=== PATIENT | female | born 1985 | race African-American/Black ===

== ENCOUNTER 2018-11-03 17:19 | Observation (INO) ==
[2018-11-03] MEDS ORDERED: ONDANSETRON 4 MG/2 ML VIAL IV PRN (23:03)
[2018-11-03] MEDS ORDERED: MORPHINE 4 MG/1 ML VIAL IV PRN (23:03)
[2018-11-03] MEDS ORDERED: ACETAMINOPHEN 325 MG TABLET PO PRN (23:03)
[2018-11-03] MEDS ORDERED: KETOROLAC 30 MG/1 ML VIAL IV STA (23:20)
[2018-11-03] MEDS ORDERED: LORazepam 2 MG/1 ML VIAL IV STA (23:20)
[2018-11-03] MEDS ORDERED: LORazepam 2 MG/1 ML VIAL ONE (23:21)
[2018-11-03] MEDS ORDERED: KETOROLAC 30 MG/1 ML VIAL ONE (23:21)
[2018-11-03] MEDS ORDERED: DEXTROSE 5% LACTATED RINGERS 1,000 ML IV SCH (23:30)
[2018-11-04] MEDS ORDERED: LACTATED RINGERS 1,000 ML IV SCH ×2 (07:30→09:30)
[2018-11-04] MEDS ORDERED: ceFAZolin 1,000 MG VIAL ONE (08:40)
[2018-11-04] MEDS ORDERED: PANTOPRAZOLE 40 MG VIAL IV SCH (09:00)
[2018-11-04] MEDS ORDERED: ONDANSETRON 4 MG/2 ML VIAL IV PRN ×2 (09:19→09:37)
[2018-11-04] MEDS ORDERED: MEPERIDINE 25 MG/1 ML VIAL IM PRN (09:19)
[2018-11-04] MEDS ORDERED: PROPOFOL 200 MG/20 ML VIAL IV ONE (09:24)
[2018-11-04] MEDS ORDERED: fentaNYL 100 MCG/2 ML VIAL ONE ×2 (09:24→09:30)
[2018-11-04] MEDS ORDERED: SEVOFLURANE 1 UNIT/15 MINUTE INH ONE (09:24)
[2018-11-04] MEDS ORDERED: DEXAMETHASONE 10 MG/1 ML VIAL ONE (09:25)
[2018-11-04] MEDS ORDERED: ONDANSETRON 4 MG/2 ML VIAL ONE (09:25)
[2018-11-04] MEDS ORDERED: METOPROLOL TARTRATE 5 MG/5 ML VIAL IV ONE (09:25)
[2018-11-04] MEDS ORDERED: LACTATED RINGERS 1,000 ML IV ONE (09:25)
[2018-11-04] MEDS ORDERED: ROCURONIUM 100 MG/10 ML VIAL IV ONE (09:25)
[2018-11-04] MEDS ORDERED: NEOSTIGMINE 10 MG/10 ML VIAL ONE (09:25)
[2018-11-04] MEDS ORDERED: MIDAZOLAM 2 MG/2 ML VIAL ONE (09:25)
[2018-11-04] MEDS ORDERED: GLYCOPYRROLATE 0.4 MG/2 ML VIAL ONE (09:25)
[2018-11-04] MEDS ORDERED: KETOROLAC 30 MG/1 ML VIAL ONE (09:25)
[2018-11-04] MEDS ORDERED: SUCCINYLCHOLINE 200 MG/10 ML VIAL ONE (09:25)
[2018-11-04] MEDS: HYDROmorphone 2 MG/1 ML VIAL IV PRN ×2 (09:38→09:48)
[2018-11-04] MEDS ORDERED: diphenhydrAMINE CAP 25 MG CAPSULE PO PRN (11:58)
[2018-11-04 13:43] VITALS: BP 132/73
[2018-11-04] MEDS ORDERED: ONDANSETRON 4 MG TABLET PO PRN (13:56)
[2018-11-04] MEDS ORDERED: LORazepam 1 MG TABLET PO ONE (15:34)
== END 2018-11-04 16:00 | disposition home or self-care (01) ==
LOC: N.ED 17:19 → N.EDINP 17:19 → N.OB 23:34
PROVIDERS: ADMIT Specialist; ATTEND Specialist